=== PATIENT | female | born 1975 | race Caucasian/White ===

== ENCOUNTER → 2018-06-02 | Outpatient (CLI) | payer OTHER ==
[~2018-06-02] MED LIST: ADDERALL 20 MG20 MG; ADULT LOW DOSE81 MG PO; AMBIEN 10 MG TA10 MG PO; AMBIEN 5 MG TABL5 M1; AUGMENTIN 875-1 EACH PO; AUGMENTIN 875875 MG PO; BACTRIM DS TAB1 EACH PO; BYETTA PEN 51 PENIN1 SC; CIPRO500 MG PO; CIPROFLOXACIN500 M1 PO; CIPROFLOXIN HC2.5 M1 OPHTHALMIC; FLAGYL500 MG PO; GABAPENTIN 100100 MG PO; GLUCOPHAGE1000 MG PO; GLUCOSE MONITOR; Glucose Test Strips; HYDROCODON-ACE1 EACH PO; HYDROCODONE-AP1 EAC6 PO; IBUPROFEN 800800 M1 PO; KEFLEX500 MG PO; LEVEMIR SUBQ; LEXAPRO 10 MG T10 M2 PO; LIPITOR 20 MG T20 M1 PO; LISINOPRIL20 MG PO; METFORMIN HCL500 MG PO; NOHOMEMEDICATIONS; NORCO 10-325 T1 EACH PO; NORCO 5-325 TA1 EAC1 PO; NORCO 5-325 TA1 EACH PO; NORCO 7.5-3251 EACH PO; PERCOCET 7.5-31 EACH PO; PHENTERMINE H37.5 M1 PO; PROTONIX40 M2 PO; SSD25 GM TOP; ULTRAM 50MG TAB50 MG PO; VENTOLIN17 GM INH; XANAX 0.5 MG0.5 M1; ZANTAC 150MG T150 M1 PO; ZANTAC 150MG T150 MG PO; [UNRECOGNIZED DRUG - OTHER]
== END ==
LOC: M.RAD 16:32
DX: R05 Cough (principal)

== ENCOUNTER 2018-06-15 12:37 | Emergency (ER) | payer OTHER ==
[~2018-06-15] VITALS: Ht 157.5 cm; Wt 92.1 kg
[~2018-06-15 12:37] MED LIST changes: -AUGMENTIN 875-1 EACH PO; -LEXAPRO 10 MG T10 M2 PO; -LIPITOR 20 MG T20 M1 PO; -METFORMIN HCL500 MG PO
[2018-06-15] MEDS ORDERED: LEVEMIR SUBQ (12:51)
[2018-06-15] MEDS ORDERED: METFORMIN HCL500 MG PO (12:51)
[2018-06-15] MEDS ORDERED: LEXAPRO 10 MG T10 M2 PO (12:51)
[2018-06-15] MEDS ORDERED: LIPITOR 20 MG T20 M1 PO (12:51)
[2018-06-15 13:11] LABS: HEMATOCRIT 48.6 % (37.0-47.0); HEMOGLOBIN 16.9 gm/dL (12.0-15.0); MCH 31.8 pg (26.0-34.0); MCHC 34.7 g/dL (28.0-37.0); MCV 91.6 fL (80.0-100.0); MPV 8.4 fl. (7.2-11.1); NUCLEATED RBCS 0 /100WBC; PLATELET COUNT* 162 thou/uL (150-400); RDW-CV 13.7 % (10.5-14.5); WBC 11.2 thou/uL (4.0-11.0)
[2018-06-15 13:17] LABS: CALCIUM 8.7 mg/dL (8.5-10.1); CREATININE 0.8 mg/dL (0.6-1.3); POTASSIUM 3.9 mmol/L (3.5-5.1)
[2018-06-15 13:22] LABS: ALBUMIN 3.1 g/dL (3.4-5.0); TOTAL BILIRUBIN 0.5 mg/dL (<0.1-1.0); TOTAL PROTEIN 6.6 g/dL (6.4-8.2)
[2018-06-15 13:44] LABS: ABSOLUTE EOSINOPHILS 0.1 thou/uL (0.0-0.7); ABSOLUTE LYMPHOCYTES 0.2 thou/uL (0.8-5.3); ABSOLUTE MONOCYTES 0.3 thou/uL (0.0-1.2); ABSOLUTE NEUTROPHILS 10.5 thou/uL (1.6-8.1)
[2018-06-15 13:45] LABS: PLATELET ESTIMATE ADEQUATE
[2018-06-15] MEDS ORDERED: AUGMENTIN 875-1 EACH PO (14:36)
[2018-06-15] MEDS ORDERED: NORCO 5-325 TA1 EACH PO (14:36)
[2018-06-15 14:42] VITALS: BP 140/83
== END 2018-06-15 14:42 | disposition home or self-care (01) ==
LOC: M.ERS 12:37
PROVIDERS: Physician Assistant Surgical
DX: I88.9 Nonspecific lymphadenitis, unspecified (principal); E11.9 Type 2 diabetes mellitus without complications; F17.210 Nicotine dependence, cigarettes, uncomplicated; Z87.442 Personal history of urinary calculi; Z79.4 Long term (current) use of insulin; Z88.6 Allergy status to analgesic agent

== ENCOUNTER → 2018-11-16 | Outpatient (CLI) | payer OTHER ==
[~2018-11-16] MED LIST changes: +AUGMENTIN 875-1 EACH PO; +LEXAPRO 10 MG T10 M2 PO; +LIPITOR 20 MG T20 M1 PO; +METFORMIN HCL500 MG PO
== END ==
LOC: M.RAD 13:19
DX: Z12.31 Encounter for screening mammogram for malignant neoplasm of breast (principal)

== ENCOUNTER 2019-10-28 16:53 | Emergency (ER) | payer OTHER ==
[~2019-10-28] VITALS: Ht 157.5 cm; Wt 104.3 kg
[2019-10-28] MEDS ORDERED: LEXAPRO20 MG PO (17:05)
[2019-10-28] MEDS ORDERED: MINOCYCLINE HC100 M2 PO (17:06)
[2019-10-28] MEDS ORDERED: LANTUS SUBQ (17:06)
[2019-10-28] MEDS ORDERED: ABILIFY 2 MG2 M1 PO (17:06)
[2019-10-28] MEDS ORDERED: NAPROSYN500 MG PO (18:50)
[2019-10-28] MEDS ORDERED: MEDROLDOSEPACK PO (18:50)
[2019-10-28] MEDS ORDERED: NORCO 5-325 TA1 EAC1 PO (18:50)
[2019-10-28 19:02] VITALS: BP 152/78
== END 2019-10-28 19:02 | disposition home or self-care (01) ==
LOC: M.ERS 16:53
DX: M94.0 Chondrocostal junction syndrome [Tietze] (principal); E11.9 Type 2 diabetes mellitus without complications; F17.210 Nicotine dependence, cigarettes, uncomplicated; Z87.442 Personal history of urinary calculi; Z98.51 Tubal ligation status; Z79.4 Long term (current) use of insulin; Z88.8 Allergy status to other drugs, medicaments and biological substances

== ENCOUNTER → 2020-02-28 | Outpatient (CLI) | payer OTHER ==
[~2020-02-28] MED LIST changes: +ABILIFY 2 MG2 M1 PO; +LANTUS SUBQ; +LEXAPRO20 MG PO; +MEDROLDOSEPACK PO; +MINOCYCLINE HC100 M2 PO; +NAPROSYN500 MG PO
== END ==
LOC: M.CT 02-21 09:15
PROVIDERS: ATTEND Specialist
DX: R07.9 Chest pain, unspecified (principal); E78.5 Hyperlipidemia, unspecified; E11.9 Type 2 diabetes mellitus without complications; Z82.49 Family history of ischemic heart disease and other diseases of the circulatory system; Z72.0 Tobacco use; Z79.4 Long term (current) use of insulin